=== PATIENT | female | born 2005 | race Caucasian/White ===

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

== ENCOUNTER → 2024-07-02 09:21 | Outpatient (BNVA) | payer BC, OTHER, SELFPAY | PROVIDERS: PCP Family Medicine; Visit Provider Nurse Practitioner Women's Health | DX: Z30.9 Encounter for contraceptive management, unspecified (principal) | CPT/HCPCS: 81025 ==

== ENCOUNTER → 2025-01-23 11:28 | Outpatient (BNVA) | payer OTHER, SELFPAY | PROVIDERS: PCP Family Medicine; Visit Provider Nurse Practitioner Women's Health | DX: Z30.9 Encounter for contraceptive management, unspecified (principal) | CPT/HCPCS: 81025 ==

== ENCOUNTER → 2025-01-29 12:07 | Outpatient (BNVA) | payer OTHER, SELFPAY | PROVIDERS: PCP Family Medicine; Visit Provider Registered Nurse Neonatal Intensive Care | DX: R39.89 Other symptoms and signs involving the genitourinary system (principal) | CPT/HCPCS: 81000 ==

== ENCOUNTER → 2025-02-05 11:34 | Outpatient (BNVA) | payer OTHER, SELFPAY | PROVIDERS: PCP Family Medicine; Visit Provider Family Medicine | DX: F41.9 Anxiety disorder, unspecified (principal); G47.00 Insomnia, unspecified; R53.83 Other fatigue | CPT/HCPCS: 82306; 82607; 83540; 84443; 85025 ==

== ENCOUNTER 2025-02-12 10:37 | Emergency (ER) | payer OTHER, SELFPAY ==
[2025-02-12 10:43] VITALS: BP 113/70; PULSE 123; RESP 17; TEMP 36.9; O2SAT 97; BMI 31.1
--- OUTSIDE RECORDS SUMMARY | 2025-02-12 10:46 | XMS_ITS | Clinical Summary ---
Author Organization [facility] Address [address] [place] [address] Phone Care Team Providers Care Jawbone Breaker Name Role Phone Anuel Hermelindo Primary Care Provider [phone] Allergies Active Allergy Reactions Criticality Noted Date Comments Penicillin Rash Low 10/14/2023 Skin rash, non-itching Medications temazepam (Restoril) 7.5 mg capsuleIndications :insomnia Take 15 mg by mouth every night. Active medroxyPROGESTERon e (Depo-Provera) 150 mg/mL injectionIndicatio ns: contraception 150 mg every 3 (three) months. Active escitalopram (Lexapro) 20 mg tabletIndications: anxiety with depression Take 1 tablet (20 mg total) by mouth 1 (one) time each day. 30 tablet 4 Active busPIRone (Buspar) 15 mg tabletIndications: generalized anxiety disorder Take 1 tablet (15 mg total) by mouth 2 (two) times a day. 60 tablet 4 Active Active Problems Problem Noted Date Diagnosed Date Depression, unspecified depression type 10/14/19 24 Social History Tobacco Use Types Packs/Day Years Used Date Smoking Tobacco: Never Smokeless Tobacco: Never Tobacco Cessation:Counseling Given: Not Answered Alcohol Use Standard Drinks/Week Comments Never 0 (1 standard drink = 0.6 oz pur e alcohol) [facility] Utilities Answer Date Recorded In the past 12 months has e electric, gas, oil, or water company threatened to shut off services in your home? No 10/17/2023 Humiliation, Afraid, Rape, and Kick questionnair e Answer Date Recorded Within the last year, have y ou been afraid of your partner or ex-partner? No 10/17/2023 Within the last year, have y ou been humiliated or emotionally abused in other ways by your partner or ex-partner? No Within the last year, have y ou been kicked, hit, slapped, or otherwise physically hurt by your partner or ex-partner? No 10/17/2023 Within the last year, have y ou been raped or forced to have any kind of sexual activity by your partner or ex-partner? No 10/17/2023 Overall Financial Resource Strain (CARDIA) Answe r Date Recorded How hard is it for you to pa y for the very basics like food, housing, medical care, and heating? Hard 10/17/2023 Hunger Vital Sign Answer Date Recorded Within the past 12 months, y ou worried that your food would run out before you got the money to buy more. Never true 10/17/19 24 Within the past 12 months, t he food you bought just didn't last and you didn't have money to get more. Never true 10/17/2023 PRAPARE - Transportation Answer Date Re corded In the past 12 months, has l ack of transportation kept you from medical appointments or from getting medications? No 09/22 In the past 12 months, has l ack of transportation kept you from meetings, work, or from getting things needed for daily living? No 10/17/2023 Housing Stability Vital Sign Answer Farshad e Recorded In the last 12 months, was t here a time when you were not able to pay the mortgage or rent on time? Yes 10/17/2023 In the past 12 months, how m any times have you moved where you were living? 1 10/17/2023 At any time in the past 12 m [facility], were you homeless or living in a group home (including now)? No 10/17/2023 Comments Unknown Sex and Gender Information Value Date Recorded Sex Assigned at Female 10/14/2023 11:56 PM CDT Legal Sex Female 5:30 PM CDT Gender Identity Female 10/14/2023 11:56 PM CDT Sexual Orientation Straight 10/14/2023 11 :56 PM CDT Last Filed Vital Signs Vital Sign Reading Time Taken Comments Blood Pressure 127/75 10/18/2023 7:42 AM CDT Pulse 63 10/18/2023 7:42 AM CDT Temperature 36.6 C (97.8 F) 10/18/2023 7:42 AM CDT Respiratory Rate 17 10/18/2023 7:42 AM CDT Oxygen Saturation 98% 10/18/2023 7:42 AM CDT Inhaled Oxygen Concentration - - Weight 79.1 kg (174 lb 6.4 oz) 10/16/2023 7:54 A M CDT Height 154.9 cm (5' 1 ) 10/14/2023 11:29 PM CDT Body Mass Index 32.95 10/14/2023 11:29 PM CDT Plan of Treatment Health Maintenance Due Date Last Done Comments MMR Vaccines (1 of 1 - Stand sofia series) 2005 DTaP,Tdap,and Td Vaccines (1 - Tdap) 11/27/2011 Varicella Vaccines (1 of 2 - 13+ 2-dose series) 2017 HPV Vaccines (1 - 3-dose series) 11/27/2019 Meningococcal B Vaccine (1 o f 2 - Standard) 2020 Depression Screening 2022 Hepatitis C Screening 2022 Social Drivers of Health (SDoH) 2022 Hepatitis B Vaccines (1 of 3 - 19+ 3-dose series) 11/27/2023 COVID-19 Vaccines (1 - season) 2024 Influenza Vaccine (#1) 2024 Zoster Vaccines (1 of 2) 2054 RSV Vaccines (1 - 1-dose 75+ series) 11/27/2079 HIB Vaccines Aged Out No longer eligi ble based on patient's age to complete this topic Hepatitis A Vaccines Aged Out No long er eligible based on patient's age to complete this topic IPV Vaccines Aged Out No longer eligi ble based on patient's age to complete this topic Meningococcal Vaccine Aged Out No kade мария eligible based on patient's age to complete this topic Pneumococcal Vaccines Aged Out No kade мария eligible based on patient's age to complete this topic Rotavirus Vaccines Aged Out No longer eligible based on patient's age to complete this topic Insurance HOME STATE BLUE CROSS Advance Directives For more information, please contact: [phone] (7:30 AM - 5PM [facility], 7 days a week) * Full Code (Latest Code Status on File) Date Activated Date Inactivated Comments 10/14/2023 10:48 PM 10/18/2023 1:57 PM Care Teams Jawbone Breaker Relationship Specialty Start Date End Date Hermelindo Agee: [phone] [id number] [facility] [place] [id number] PCP - General 10/14/23
[2025-02-12] MEDS: ondansetron 2 mg/ML SDV 2 mL 8 MG IVP (11:06)
[2025-02-12 11:21] VITALS: BP 118/70; O2SAT 99
--- NOTE | 2025-02-12 11:21 | ED_ITS ---
HPI - Nausea/Vomiting/Diarrhea 2 General: Chief complaint: Nausea/Vomiting/Diarrhea Stated complaint: v,d,n Time Seen by Provider: 02/12/25 11:01 History of Present Illness: 19-year-old female presents emergency ro om complaining of low back pain. Some vomiting. She had some blood in the stool when she wiped but did not discolor the toilet water. No fever sweats or chills no cough or shortness of breath. She has had frequent urinary tract infections last urinary tract infection was a week ago she took a course of Macrobid for this. Associated symtoms: Denies chest pain or dysuria Related Data Home Medications ?Medication ?Instructions ?Recorded ?Confirmed cetirizine 10 mg capsule (Zyrtec) 10 mg PO DAILY 01/2302/12/25 etonogestrel 68 mg subdermal 1 implant subdermal .Q3YE ARS 01/23/25 02/12/25 implant (Nexplanon) buspirone 30 mg tablet 30 mg PO BID 02/12/25 Previous Rx's ?Medication ?Instructions ?Recorded escitalopram oxalate 20 mg tablet 20 mg PO DAILY #30 t abs 11/12/24 trazodone 50 mg tablet 75 mg (1.5 x 50 mg) PO .QHS #45 02/05/25 tabs ondansetron 4 mg disintegrating 4 mg PO Q6H PRN nausea and 02/12/25 tablet vomiting #14 tabs Allergies Allergy/AdvReac Type Severity Reaction Status Date / Time Penicillins Allergy Rash--has Verified 01/23/25 11:09 never taken other cillins or Keflex Review of Systems 2 Const: Denies: fever(s) or chills Card: Denies: chest pain Resp: Denies: dyspnea GI: Denies: abdominal pain : Denies: dysuria, urinary frequency or urinary urgency Musc: Denies: neck pain or back pain Skin/Breast: Denies: rash PFSH ED 2 PFSH: Medical History Anxiety No pertinent past medical history Denies diabetes, asthma, hypertension, seizures, DVT/PE PCP: Dr. Agee Surgical History No history of previous surgery Family History Mother Hyperlipidemia Grandmother Hyperlipidemia maternal Hypertension maternal Thyroid disease paternal Family/Other Hyperlipidemia maternal uncle Thyroid disease paternal aunt Denies family history of Colon cancer Ovarian cancer Diabetes Heart disease Breast cancer Uterine cancer Stroke Social History Smoking and tobacco/nicotine status: never used tobacco/nicotine Second hand smoke exposure: No Alcohol intake: never Substance/Drug Use: never Physical Exam 2 Const: COMMON NORMALS: no acute distress GENERAL APPEARANCE: cooperative and comfortable ORIENTATION/CONSCIOUSNESS: Yes awake, Yes oriented to person, Yes oriented to place and Yes oriented to time HENMT: COMMON NORMALS: normocephalic, atraumatic and hearing grossly normal bilaterally HEAD & SCALP: normocephalic and atraumatic Resp: COMMON NORMALS: normal respiratory effort, No retractions, No use of accessory muscles and clear to auscultation bilaterally AUSCULTATION: clear to auscultation bilaterally Cardio: COMMON NORMALS: regular rate, regular rhythm and No murmurs present (Cardio) RATE: regular rate RHYTHM: regular rhythm GI: COMMON NORMALS: Soft to palpation and No hepatosplenomegaly present A USCULTATION: Yes normoactive bowel sounds PALPATION: Yes Soft to palpation, No Tenderness to palpation present (GI), No Guarding due to palpation present (GI) and Yes No hepatosplenomegaly present : COMMON NORMALS: Yes no CVA tenderness BLADDER/KIDNEY EXAM: Yes no CVA tenderness Back/Pelvis: COMMON NORMALS: no CVA tenderness Extremity: COMMON NORMALS: normal to inspection, capillary refill normal, no clubbing, cyanosis or edema, no calf tenderness and no pedal edema Neuro: SENSORIUM/ORIENTATION: Yes oriented to person, Yes oriented to place and Yes oriented to time Skin: COMMON NORMALS: no rashes or lesions noted GENERAL SKIN EXAM: no rashes or lesions noted Course 2 Vital Signs: Vital signs: Vital Signs Temperature 98.4 F 02/12/25 10:43 Pulse Rate 123 H 02/12/25 10:43 Respiratory Rate 17 02/12/25 10:43 Blood Pressure 98/50 02/12/25 13:03 Pulse Oximetry 93 02/12/25 13:03 Oxygen Delivery Me thod Room Air 02/12/25 13:03 MDM - Nausea/Vomiting/Diarrhea Medical Decision Making Medical decision making Social determinants: None I reviewed the patient's medical record. I reviewed the patient's current home meds. Alternate historians: None Differential diagnosis: Cholecystitis acute appendicitis pyelonephritis cystitis gastroenteritis Lab Review: CBC unremarkable. Chemistries also negative for acute abnormalities electrolytes BUN/creatinine liver functions are all normal. Urine shows equal number of white and epithelial cells negative nitrites trace leukocyte esterase. Not likely to reflect cystitis Imaging: CT of the abdomen pelvis no acute abdominal or pelvic findings noted Assessment of risk Level of risk: Low to moderate Hospitalization considerations: Unlikely to require hospitalization pending results of workup Reexamination: Mildly improved Assessment and plan: Likely viral gastroenteritis labs and imaging reviewed discussed with the patient. Will discharge home with antiemetics patient improved after IV fluids. Clear liquid diet for 24 to 48 hours and follow-up with primary care as needed if not improving Lab Data 02/12/25 11:28 02/12/25 11:28 Radiology Impressions Abdomen/Pelvis CT 02/12/25 12:17 IMPRESSION: 1. Unremarkable noncontrast CT abdomen and pelvis. 2. No GI tract obstruction. 3. No renal obstruction. Laboratory Results WBC 11.94 10^3/uL (4.5-13.0) 02/12/25 11:28 RBC 4.80 10^6/uL (3.85-5.65) 02/12/25 11:28 Hgb 14.30 g/dL (12.4-14.8) 02/12/25 11:28 Hct 42.0 % (36-47) 02/12/25 11:28 MCV 87.5 fl (85-98) 02/12/25 11:28 MCH 29.8 pg (27-33) 02/12/25 11:28 MCHC 34.0 g/dL (30-55) 02/12/25 11:28 RDW 12.3 % (12.1-15.1) 02/12/25 11:28 Plt Count 190 10^3/cmm (157-399) 02/12/25 11:28 MPV 10.9 fL (7.4-10.4) H 02/12/25 11:28 Neut % (Auto) 93.0 % 02/12/25 11:28 Lymph % (Auto) 3.0 % 02/12/25 11:28 [place] % (Auto) 3.4 % 02/12/25 11:28 Eos % (Auto) 0.0 % 02/12/25 11:28 Baso % (Auto) 0.2 % 02/12/25 11:28 Neut # (Auto) 11.11 10^3/uL (1.8-8.0) H 02/12/25 11:28 Lymph # (Auto) 0.4 10^3/uL (1.5-6.5) L 02/12/25 11:28 [place] # (Auto) 0.4 10^3/uL (0.2-0.9) 02/12/25 11:28 Eos # (Auto) 0.0 10^3/uL (0.0-0.8) 02/12/25 11:28 Baso # (Auto) 0.0 10^3/uL (0.0-0.1) 02/12/25 11:28 Nucleated RBC % (auto) 0 % 02/12/25 11:28 Nucleated RBCs # 0.0 /100WBC 02/12/25 11:28 Sodium 136 mmol/L (136-145) 02/12/25 11:28 Potassium 3.6 mmol/L (3.5-5.1) 02/12/25 11:28 Chloride 103 mmol/L (98-107) 02/12/25 11:28 Carbon Dioxide 19 mmol/L (22-29) L 02/12/25 11:28 Anion Gap 17.6 (5-19) 02/12/25 11:28 BUN 14 mg/dL (6-20) 02/12/25 11:28 Creatinine 0.6 mg/dL (0.5-0.9) 02/12/25 11:28 GFR Calculation 127.5 mL/min (90-130) 02/12/25 11:28 Glucose 121 mg/dL (65-115) H 02/12/25 11:28 Calculated Osmolality 284 mOsm/kg (285-295) L 02/12/25 11:28 Calcium 8.7 mg/dL (8.5-10.5) 02/12/25 11:28 Total Bilirubin 1.3 mg/dL (0.15-1.2) H 02/12/25 11:28 AST 12 U/L (0-32) 02/12/25 11:28 ALT 10 U/L (0-33) 02/12/25 11:28 Alkaline Phosphatase 80 U/L (35-105) 02/12/25 11:28 Total Protein 6.9 g/dL (6.6-8.7) 02/12/25 11:28 Albumin 4.4 g/dL (3.5-5.2) 02/12/25 11:28 Globulin 2.5 g/dL (1.3-4.6) 02/12/25 11:28 Lipase 15 U/L (13-60) 02/12/25 11:28 HCG, Qual Negative (Negative) 02/12/25 11:28 Urine Color Dark yellow (Yellow) A 02/12/25 11:09 Urine Appearance Cloudy (CLEAR) A 02/12/25 11:09 Urine pH 6.0 (5-7) 02/12/25 11:09 Ur Specific [place] 1.033 (1.005-1.030) H 02/12/25 11:09 Urine Protein 1+ (Negative) A 02/12/25 11:09 Urine Glucose (UA) Negative (Normal) 02/12/25 11:09 Urine Ketones 3+ (Negative) H 02/12/25 11:09 Urine Blood 2+ (Negative) A 02/12/25 11:09 Urine Nitrate Negative (Negative) 02/12/25 11:09 Urine Bilirubin Negative (Negative) 02/12/25 11:09 Urine Urobilinogen 1.0 mg/dL (Negative) 02/12/25 11:09 Ur Leukocyte Esterase Trace (Negative) A 02/12/25 11:09 Urine RBC 6-10 /hpf (0-2) 02/12/25 11:09 Urine WBC 11-20 /hpf (0-5) H 02/12/25 11:09 Ur Squamous Epith Cells 11-20 /hpf (0-5) H 02/12/25 11:09 Amorphous Sediment Not Reportable 02/12/25 11:09 Urine Bacteria Trace /hpf (NONE) 02/12/25 11:09 Hyaline Casts 1.21 /lpf 02/12/25 11:09 All radiology interpretation(s) finalized by discharge Discharge Plan Discharge Patient Disposition: Home Clinical Impression: Gastroenteritis Condition: Stable Prescriptions: New ondansetron 4 mg tablet,disintegrating 4 mg PO Q6H PRN (Reason: nausea and vomiting) Qty: 14 0RF No Action trazodone 50 mg tablet 75 mg PO .QHS Qty: 45 11RF Zyrtec 10 mg capsule 10 mg PO DAILY Nexplanon 68 mg implant 1 implant subdermal .[id number] escitalopram oxalate 20 mg tablet 20 mg PO DAILY Qty: 30 11RF buspirone 30 mg tablet 30 mg PO BID Discharge Orders: Discharge ED (Routine); Ordered 02/12/25 Ordered By: Jerson Giles Referrals: Hermelindo Agee MD [Primary Care Provider, Family Practice] Discharge Diet: Clear Liquid Discharge Activity: Increase activity as tolerated Patient Instructions: Gastroenteritis (ED), Opioid Safety, Pain Management, Patient Portal & Priyanka Instructions Activity Restrictions/Additional Instructions: Thank you for choosing [facility] for your healthcare needs today. It is very important that you follow up as instructed or that you return to the Emergency Department should you have concerns or if your condition changes or worsens in any way. Emergency department visits are focused on emergent conditions, in some cases you may require further evaluation on an outpatient basis. You are seen in the emergency room with complaint of abdominal pain nausea vomiting and diarrhea. We have given you IV fluids. Lab test did not show any clinically significant abnormalities or was small amount of blood in the urine the CT of the abdomen does not show any signs of kidney stones there is no sign of infection. It did show signs that you were moderately dehydrated. You are given IV fluids emergency room discharge home with Zofran oral disintegrating tablets to use as needed. Increase oral fluid intake clear liquid diet for the next 24 to 48 hours and advance as tolerated (Please note that included in your discharge packet is information concerning opioid safety and pain management. This information is given to all patients were discharged from the ER regardless of their discharge diagnosis or the medicines they usually take or are prescribed.) Print Language: Estonian Coding Level of Care Code ED Machine [employer] Etcher for Barbara Orona
[2025-02-12 11:30] LABS: Glucose Urine UA Negative (Normal); Nitrate Urine Negative (Negative)
[2025-02-12 11:33] LABS: Add Urine Microscopic? YES
[2025-02-12 11:44] LABS: Hematocrit 42.0 % (36-47); Hemoglobin 14.30 g/dL (12.4-14.8); Mean Corpuscular HGB Conc 34.0 g/dL (30-55); Mean Corpuscular Hemoglobin 29.8 pg (27-33); Mean Corpuscular Volume 87.5 fl (85-98); Nucleated Red Blood Cells % 0 %; Platelet Count 190 10^3/cmm (157-399); Red Blood Count 4.80 10^6/uL (3.85-5.65); White Blood Count 11.94 10^3/uL (4.5-13.0)
[2025-02-12 11:52] LABS: Specific Gravity, Urine 1.033 (1.005-1.030); UA Slide Review UA Slide Review Perf
[2025-02-12 12:11] LABS: Alanine Aminotransferase 10 U/L (0-33); Albumin Level 4.4 g/dL (3.5-5.2); Alkaline Phosphatase 80 U/L (35-105); Anion Gap 17.6 (5-19); Aspartate Amino Transferase 12 U/L (0-32); Blood Urea Nitrogen 14 mg/dL (6-20); Calcium 8.7 mg/dL (8.5-10.5); Carbon Dioxide 19 mmol/L (22-29); Chloride 103 mmol/L (98-107); Globulin 2.5 g/dL (1.3-4.6); Glucose 121 mg/dL (65-115); Lipase 15 U/L (13-60); Osmolality Calculated 284 mOsm/kg (285-295); Potassium 3.6 mmol/L (3.5-5.1); Sodium 136 mmol/L (136-145); Total Protein 6.9 g/dL (6.6-8.7)
[2025-02-12 12:13] LABS: HCG, Serum Qual Negative (Negative)
--- NOTE | 2025-02-12 12:17 | CT_ITS ---
WS: [id number] CT ABDOMEN AND PELVIS NONCONTRAST HISTORY: hematuria TECHNIQUE: Imaging performed through the abdomen and pelvis. Coronal and sagittal reformats are submitted. All CT scans at [facility] use at least one of these dose optimization techniques: automated exposure control; mA and/or kV adjustment per patient size (includes targeted exams where dose is matched to clinical indication); or iterative reconstruction. DLP: 637.95 mGy.cm COMPARISON: None available. Lower thorax: Lung bases are clear. Visualized heart is normal. No hiatal hernia. Liver: Normal size liver. No mass or bile duct dilatation. Gallbladder: Normal gallbladder. No pericholecystic fluid or cholelithiasis. No gallbladder wall thickening. Pancreas: Normal size and attenuation. Normal pancreatic duct. No pancreatitis or mass. Spleen: Normal. Adrenal glands: Normal. No mass. Right kidney: Normal size kidney with no mass or hydronephrosis. Left kidney: Normal size kidney with no mass or hydronephrosis. Aorta: Normal abdominal aorta, no aneurysm or atherosclerosis. No free fluid, intraperitoneal air or significant lymphadenopathy. GI tract: Normal noncontrast imaging of the stomach, small bowel and colon. No obstruction or wall thickening. Normal appendix. Abdominal wall: Small umbilical hernia contains fat only. Pelvis: Uterus is midline. Both ovaries are identified. No free fluid or adenopathy. Osseous structures: Unremarkable. CT/CT kidney stone [id number] IMPRESSION: 1. Unremarkable noncontrast CT abdomen and pelvis. 2. No GI tract obstruction. 3. No renal obstruction.
[2025-02-12 13:03] VITALS: BP 98/50; O2SAT 93
== END 2025-02-12 13:38 | disposition home or self-care (01) ==
PROVIDERS: Emergency Provider Family Medicine; PCP Family Medicine
DX: K52.9 Noninfective gastroenteritis and colitis, unspecified (principal)
CPT/HCPCS: 36415; 74176; 80053; 81001; 83690; 84703; 85025; 87086; 96361; 96374; 99285; J2405; J7030